=== PATIENT | male | born 1995 | race Two or more races ===

== ENCOUNTER 2018-06-11 11:07 | Emergency (ER) | payer MEDICAID ==
[~2018-06-11] VITALS: Ht 170.2 cm; Wt 62.3 kg
[2018-06-11 11:21] VITALS: BP 113/72
[2018-06-11] MEDS ORDERED: PROCHC RC (12:36)
== END 2018-06-11 12:48 | disposition home or self-care (01) ==
LOC: ER 11:07
DX: K64.4 Residual hemorrhoidal skin tags (principal)
CPT/HCPCS: 99282; 99283